=== PATIENT | male | born 1990 | race Caucasian/White ===

== ENCOUNTER 2022-11-03 09:37 | Emergency (ER) | payer OTHER, SELFPAY ==
--- NOTE | 2022-11-03 09:40 | ED.GENADULT ---
HPI - General Adult General Chief complaint: Dizziness Stated complaint: Dizziness Time Seen by Provider: 11/03/22 09:58 Source: patient, RN notes reviewed and old records reviewed Mode of arrival: ambulatory Limitations: no limitations History of Present Illness HPI narrative: 32-year-old male presents to the [facility] with complaints of dizziness. Patient states it was sudden onset that occurred while he was driving. Had to taffy puller. Reports nausea. Denies any ear pressure, throat issues. Denies any chest pain or shortness of breath. Denies any upper respiratory symptoms States that he feels like he is spinning around Patient reports when the dizziness occurs he feels weird and is unable to concentrate and has trouble walking States that he was dropped off to the clinic by a family member Onset (ago): hour(s) Treatments prior to arrival: none Related Data Home Medications Medication Instructions Recorded Confirmed cholecalciferol (vitamin D3) 50 50 mcg PO DAILY 11/03/22 11/03/22 mcg (2,000 unit) tablet (Vitamin D3) escitalopram oxalate 20 mg tablet 20 mg PO DAILY 11/03/22 11/03/22 Allergies Allergy/AdvReac Type Severity Reaction Status Date / Time No Known Allergies Allergy Unknown Verified 11/01/18 09:21 Review of Systems Review of Systems: All systems reviewed & are unremarkable except as noted in HPI and below Constitutional: Constitutional: Reports no additional constitutional complaints Eyes: Eyes: Reports no additional eye complaints ENT: Reports system reviewed and no additional complaints, except as documented Cardiovascular: Cardiovascular: Reports no additional cardiovascular complaints, Denies chest pain and Denies dyspnea Respiratory: Respiratory: Reports no additional respiratory complaints, Denies chest congestion, Denies cough and Denies dyspnea Gastrointestinal: Gastrointestinal: Reports no additional gastrointestinal complaints, Denies abdominal pain, Denies nausea and Denies vomiting Musculoskeletal: Musculoskeletal: Reports no additional musculoskeletal complaints Integumentary/Breasts: Skin/Breast: Reports system reviewed and no additional complaints, except as docu Neurologic: Reports as per HPI, Reports dizziness, Reports syncope (near), Denies frequent falls and Denies headache(s) Psychiatric: Psychiatric: Reports no additional psychiatric complaints Allergic/Immunologic: Allergic/Immunologic: Reports no additional allergic/immunologic complaints PMFSH Past Medical History Medical History Anxiety and depression Social History Social History (Updated 11/03/22 @ 10:14 by Marni Garcia APRN) Living arrangements: with family Gender identity (if verbalized by the patient): Male Comments At the time of my signature, I reviewed and agree with the nursing past medical, surgical, social, and family history. There is no relevant family history pertinent to the patient complaint. Exam Const: General: cooperative, healthy appearing, comfortable, no acute distress, well developed, alert and well nourished Nutritional Appearance: well nourished Orientation/consciousness: patient oriented x3 Limitations: no limitations HENMT: Head: normal to inspection Ears: hearing grossly normal bilaterally and external ears normal Face/Nose/Sinus: Normal external nose present, Normal nares present, Normal nasal mucous membranes and turbinates present, normal facial exam and face symmetric Face and sinus: normal facial exam and face symmetric Mouth: Yes Normal oral and palatal mucosa present, Yes lip normal and Yes moist mucous membranes Throat: posterior oropharynx normal and uvula midline Eyes: General: appearance normal, both eyes and all related structures Alignment and Position: alignment normal Periorbital: periorbital findings normal Pupils: Equal, round and reactive pupils present EOM: EOMs intact bilaterally Neck: Ne
[2022-11-03 09:43] VITALS: BP 134/74; PULSE 51; RESP 16; TEMP 36.4; O2SAT 99
--- NOTE | 2022-11-03 09:48 | ECG_ITS ---
Measurements Intervals [place] Rate: 46 P: 56 LA: 158 QRS: 64 QRSD: 102 T: 15 QT: 429 QTc: 378 Interpretive Statements SINUS BRADYCARDIA INCOMPLETE RIGHT BUNDLE BRANCH BLOCK BASELINE ARTIFACT- I, II, III, AVR, AVL ABNORMAL ECG NO PREVIOUS ECG AVAILABLE FOR COMPARISON Electronically Signed On 11-03-2022 10:58:22 CDT by Erik Ferrell D.O.
== END 2022-11-03 10:10 | disposition short-term general hospital (02) ==
PROVIDERS: Emergency Provider Nurse Practitioner
DX: R00.1 Bradycardia, unspecified (principal); R42 Dizziness and giddiness; F41.9 Anxiety disorder, unspecified; F32.A Depression, unspecified
CPT/HCPCS: 93005; 99203; G0463

== ENCOUNTER 2023-04-06 12:26 | Emergency (ER) | payer OTHER, SELFPAY ==
[2023-04-06 12:37] VITALS: BP 148/71; PULSE 70; RESP 16; TEMP 37.1; O2SAT 98
--- NOTE | 2023-04-06 12:54 | ED.GENADULT ---
HPI - General Adult General Chief complaint: Unspecified Stated complaint: Hemorrhoid Time Seen by Provider: 04/06/23 12:54 Source: patient Mode of arrival: ambulatory Limitations: no limitations History of Present Illness HPI narrative: 32 yo M presents with c/o hemorrhoid for 1 week. Deneis constipation/straining. no hx of hemorrhoid. Reports some bleeding. Pain worse when sitting. Having normal BMs. All systems reviewed and negative except as noted above. Related Data Home Medications Medication Instructions Recorded Confirmed cholecalciferol (vitamin D3) 50 50 mcg PO DAILY 11/03/22 11/03/22 mcg (2,000 unit) tablet (Vitamin D3) escitalopram oxalate 20 mg tablet 20 mg PO DAILY 11/03/22 11/03/22 Allergies Allergy/AdvReac Type Severity Reaction Status Date / Time No Known Allergies Allergy Unknown Verified 11/01/18 09:21 Review of Systems Review of Systems: CONSTITUTIONAL: Denies fever, chills, or sweats. EYES: Denies visual changes, redness, or discharge. ENT: Denies rhinorrhea, congestion, sore throat, or otalgia. CARDIOVASCULAR: Denies chest pain, palpitations, or edema. RESPIRATORY: Denies cough or dyspnea. GASTROINTESTINAL: Denies abdominal pain, nausea, vomiting, or diarrhea. Reports painful hemorrhoid GENITOURINARY: Denies dysuria or hematuria. SKIN: Denies rash or itching. MUSCULOSKELETAL: Denies back pain, joint pain, or myalgia. NEUROLOGIC: Denies headache, numbness, or weakness. PSYCHIATRIC: Denies anxiety or depression. All other systems reviewed are negative, except as documented in HPI. PMFSH Past Medical History Medical History Anxiety and depression Social History Social History (Updated 11/03/22 @ 10:14 by Marni Garcia APRN) Living arrangements: with family Gender identity (if verbalized by the patient): Male Comments At time of signature, agree with nursing past medical, surgical, social and family history. There is no relevant family history pertinent to the presenting complaint. Exam Narrative: GENERAL: This is a well-nourished, well-developed patient, in no apparent distress. HEAD: normocephalic, atraumatic. EYES: PERRL. Sclera clear/white. Vision is grossly intact. EARS: External ears normal NOSE: External nose normal NECK: Neck supple, non-tender without lymphadenopathy, masses or thyromegaly. CARDIOVASCULAR: Regular rate and rhythm without murmurs, gallops, or rubs. RESPIRATORY: Clear to auscultation. Breath sounds equal bilaterally. No wheezes, rales, or rhonchi. SKIN: warm, Dry, intact with no suspicious lesions or rash, good texture and turgor. NEURO: awake, alert, and oriented to person, place and time. There were no obvious focal neurologic abnormalities. EXTREMITIES: No joint tenderness, effusion, or edema noted. RECTAL: small perianal abscess with small amount of bloody drainage. tender and fluctuant on palpation. tenderness and fluctuance does extend into rectum. Course Course Level of Care: Express Care Visit Vital Signs Vital signs: Vital Signs Temperature 37.1 C 04/06/23 12:37 Pulse Rate 70 04/06/23 12:37 Respiratory Rate 16 04/06/23 12:37 Blood Pressure 148/71 H 04/06/23 12:37 Pulse Oximetry 98 04/06/23 12:37 Oxygen Delivery Room Air 04/06/23 12:37 Temperature 37.1 C 04/06/23 12:37 Pulse Rate 70 04/06/23 12:37 Respiratory Rate 16 04/06/23 12:37 Blood Pressure 148/71 H 04/06/23 12:37 Pulse Oximetry 98 04/06/23 12:37 Oxygen Delivery Room Air 04/06/23 12:37 reviewed Medical Decision Making MDM Narrative Medical decision making narrative: small draining perianal abscess not appropriate to I and D at [facility]. Will start ABX. Referred to general surgery. Recommend pt go to ER if unable to get appt or any worsening of symptoms. Patient is aware of diagnosis, understands and agrees to treatment plan. Anticipatory guidance give
== END 2023-04-06 13:13 | disposition home or self-care (01) ==
PROVIDERS: Emergency Provider Nurse Practitioner Family
DX: K61.1 Rectal abscess (principal); F41.9 Anxiety disorder, unspecified; F32.A Depression, unspecified
CPT/HCPCS: 99213; G0463

== ENCOUNTER 2023-10-07 16:33 | Emergency (ER) | payer OTHER, SELFPAY | END 2023-10-07 16:59 | disposition left against medical advice (07) | PROVIDERS: Emergency Provider Nurse Practitioner Family; PCP Nurse Practitioner | DX: Z53.21 Procedure and treatment not carried out due to patient leaving prior to being seen by health care provider (principal) | CPT/HCPCS: 99199 ==

== ENCOUNTER 2023-10-08 09:55 | Emergency (ER) | payer OTHER, SELFPAY ==
--- NOTE | ~2023-10-08 | XR_ITS ---
Left Hand Technique: PA, oblique, and lateral views were obtained. Clinical History: Trauma Findings: No acute fracture or dislocation is seen. Osseous alignment is anatomic. Joint spaces are p reserved. Soft tissues are unremarkable. Impression: Unremarkable left hand. Reviewed, dictated and finalized at location M. Impression: Unremarkable left hand.
[2023-10-08 10:00] VITALS: BP 136/69; PULSE 63; RESP 18; TEMP 36.9; O2SAT 98
--- NOTE | 2023-10-08 10:40 | ED.UPPEXIN ---
HPI - Extremity Injury (Upper) General Chief Complaint: Extremity Injury, Upper Stated Complaint: Left Wrist Injury Time Seen by Provider: 10/08/23 10:40 Source: patient Mode of arrival: ambulatory Limitations: no limitations History of Present Illness HPI narrative: 33-year-old male presented for complaint of left hand pain after injury 2 nights ago. He states while playing softball and wearing a glove someone slid into the hand. Endorses pain at the time but continued to play. States he later landed in a push-up position on the ground which also caused more pain. Endorses occasional numbness and tingling to the fingers. Has been applying ice and elevating it. Has not taken anything for pain. Pain is worse with movement. Endorses decreased range of motion. Related Data Home Medications Medication Instructions Recorded Confirmed cholecalciferol (vitamin D3) 50 50 mcg PO DAILY 11/03/22 10/08/23 mcg (2,000 unit) tablet (Vitamin D3) escitalopram oxalate 20 mg tablet 20 mg PO DAILY 11/03/22 10/08/23 Allergies Allergy/AdvReac Type Severity Reaction Status Date / Time No Known Allergies Allergy Unknown Verified 10/08/23 09:57 Review of Systems Review of Systems: CONSTITUTIONAL: Denies body aches, fever, chills CARDIOVASCULAR: Denies chest pain, palpitations, or edema. RESPIRATORY: Denies cough or dyspnea. GASTROINTESTINAL: Denies abdominal pain, nausea, vomiting, or diarrhea. SKIN: Denies rash, itching, or wounds. MUSCULOSKELETAL: Reports left hand pain All systems reviewed & are unremarkable except as noted in HPI and below PMFSH Past Medical History Medical History Anxiety and depression Social History Social History Living arrangements: with family Gender identity (if verbalized by the patient): Male Comments At time of signature, I have reviewed and agree with nursing past medical, surgical, social and family history unless otherwise noted. Please see nursing chart for further information. There is no relevant family history pertinent to the presenting complaint Exam Narrative: GENERAL: Well-appearing, well-nourished, and in no acute distress. CHEST: Speaks in full sentences. No respiratory distress. HEART: Regular rate and rhythm. Normal and equal peripheral pulses. EXTREMITIES: Left hand has decreased range of motion and decreased enameler strength due to pain with movement. Point tender to 4th metacarpal. Moderate swelling to hand. Hand with normal sensation. no erythema or ecchymosis, No open wounds, or obvious deformity; alignment normal, pulse palpable and equal bilaterally, skin warm, dry, pink. Capillary refill less than 3 seconds. SKIN: Warm, dry, no rash. NEURO: Alert and oriented x3. PSYCH: Normal mood and affect Course Course Emergency Course: Patient is aware of diagnosis, understands and agrees to treatment plan. Anticipatory guidance given. Patient agrees to follow-up as directed and is aware of reasons to seek care at the emergency department. Portions of this record may have been created with voice recognition software Level of Care: Express Care Visit Vital Signs Vital signs: Vital Signs Temperature 98.5 F 10/08/23 10:00 Pulse Rate 63 10/08/23 10:00 Respiratory Rate 18 10/08/23 10:00 Blood Pressure 136/69 10/08/23 10:00 Pulse Oximetry 98 10/08/23 10:00 Oxygen Delivery Room Air 10/08/23 10:00 Temperature 98.5 F 10/08/23 10:00 Pulse Rate 63 10/08/23 10:00 Respiratory Rate 18 10/08/23 10:00 Blood Pressure 136/69 10/08/23 10:00 Pulse Oximetry 98 10/08/23 10:00 Oxygen Delivery Room Air 10/08/23 10:00 Reviewed MDM - Extremity Injury (Upper) MDM Narrative Medical decision making narrative: Discussed physical exam findings and reviewed x-ray with patient. Advised supportive measures and signs/symp
== END 2023-10-08 11:40 | disposition home or self-care (01) ==
PROVIDERS: Emergency Provider Nurse Practitioner Family; PCP Nurse Practitioner
DX: S63.502A Unspecified sprain of left wrist, initial encounter (principal); S66.912A Strain of unspecified muscle, fascia and tendon at wrist and hand level, left hand, initial encounter; W50.0XXA Accidental hit or strike by another person, initial encounter; Y93.64 Activity, baseball; F41.9 Anxiety disorder, unspecified; F32.A Depression, unspecified
CPT/HCPCS: 73130; 99213; G0463